=== PATIENT | male | born 1985 | race Caucasian/White ===

== ENCOUNTER 2017-04-03 09:09 | Emergency (ER) | payer SELFPAY ==
[2017-04-03] MEDS ORDERED: Amoxicillin/Potassium Clav 875 MG TAB ONE (09:34)
[2017-04-03] MEDS ORDERED: Pseudoephedrine HCl 30 MG TAB ONE (09:34)
== END 2017-04-03 09:35 | disposition home or self-care (01) ==
LOC: MADERS 09:09
DX: J01.90 Acute sinusitis, unspecified (principal)
CPT/HCPCS: 99282

== ENCOUNTER 2018-01-08 07:34 | Emergency (ER) | payer OTHER, SELFPAY ==
[2018-01-08] MEDS ORDERED: Lidocaine 1% 20 ML MDV ONE (08:17)
[2018-01-08] MEDS ORDERED: Azithromycin 250 MG TAB ONE (08:17)
[2018-01-08] MEDS ORDERED: cefTRIAXone\\ROCEPHIN 250 MG VIAL ONE (08:17)
== END 2018-01-08 08:40 | disposition home or self-care (01) ==
LOC: MADERS 07:34
DX: Z20.2 Contact with and (suspected) exposure to infections with a predominantly sexual mode of transmission (principal)
CPT/HCPCS: 87491; 87591; 96372; J0696; J2001

== ENCOUNTER 2019-05-23 21:51 | Emergency (ER) | payer OTHER, SELFPAY | END 2019-05-23 22:10 | disposition home or self-care (01) | LOC: MADERS 21:51 | DX: K02.9 Dental caries, unspecified (principal) | CPT/HCPCS: 99406 ==

== ENCOUNTER 2019-07-04 12:55 | Emergency (ER) | payer OTHER | END 2019-07-04 13:26 | disposition home or self-care (01) | LOC: MADERS 12:55 | DX: R11.2 Nausea with vomiting, unspecified (principal); F17.210 Nicotine dependence, cigarettes, uncomplicated | CPT/HCPCS: 99281 ==

== ENCOUNTER 2019-08-03 10:31 | Emergency (ER) | payer SELFPAY | END 2019-08-03 12:00 | disposition left against medical advice (07) | LOC: MADERS 10:31 | DX: Z53.21 Procedure and treatment not carried out due to patient leaving prior to being seen by health care provider (principal) ==

== ENCOUNTER 2019-08-03 12:20 | Emergency (ER) | payer SELFPAY | END 2019-08-03 12:35 | disposition home or self-care (01) | LOC: MADERS 12:20 | DX: R11.2 Nausea with vomiting, unspecified (principal); R19.7 Diarrhea, unspecified; F17.210 Nicotine dependence, cigarettes, uncomplicated | CPT/HCPCS: 99283 ==

== ENCOUNTER 2019-12-08 20:53 | Emergency (ER) | payer SELFPAY ==
[2019-12-08] MEDS ORDERED: Ketorolac Tromethamine 30 MG/ML VIAL ONE (21:14)
--- NOTE | 2019-12-08 21:30 | RAD ---
Exam:Left forearm 2 views HISTORY: Pain. Injury. Fall. COMPARISON: None FINDINGS: No fracture, cortical irregularity or periosteal reaction IMPRESSION: No fracture.
== END 2019-12-08 21:35 | disposition home or self-care (01) ==
LOC: MADERS 20:53
DX: S50.12XA Contusion of left forearm, initial encounter (principal); F17.210 Nicotine dependence, cigarettes, uncomplicated; W01.0XXA Fall on same level from slipping, tripping and stumbling without subsequent striking against object, initial encounter
CPT/HCPCS: 96372; J1885

== ENCOUNTER 2021-08-10 09:13 | Emergency (ER) | payer SELFPAY ==
[2021-08-10] MEDS ORDERED: Lidocaine 1% 20 ML MDV ONE (09:29)
[2021-08-10] MEDS ORDERED: Bacitracin 1 PK ONE (10:31)
== END 2021-08-10 10:42 | disposition home or self-care (01) ==
LOC: MADERS 09:13
DX: S61.213A Laceration without foreign body of left middle finger without damage to nail, initial encounter (principal); F17.210 Nicotine dependence, cigarettes, uncomplicated; W23.0XXA Caught, crushed, jammed, or pinched between moving objects, initial encounter
CPT/HCPCS: 12001

== ENCOUNTER 2021-08-19 16:42 | Emergency (ER) | payer SELFPAY | END 2021-08-19 19:08 | disposition home or self-care (01) | LOC: MADERS 16:42 | DX: L05.91 Pilonidal cyst without abscess (principal); S61.213D Laceration without foreign body of left middle finger without damage to nail, subsequent encounter; F17.210 Nicotine dependence, cigarettes, uncomplicated; X58.XXXD Exposure to other specified factors, subsequent encounter | CPT/HCPCS: 99282 ==

== ENCOUNTER 2021-09-12 08:17 | Emergency (ER) | payer SELFPAY ==
[2021-09-12] MEDS ORDERED: Ibuprofen 800 MG TAB ONE (08:37)
== END 2021-09-12 09:40 | disposition home or self-care (01) ==
LOC: MADERS 08:17
DX: J06.9 Acute upper respiratory infection, unspecified (principal); F17.210 Nicotine dependence, cigarettes, uncomplicated
CPT/HCPCS: 71046

== ENCOUNTER 2021-10-02 06:38 | Emergency (ER) | payer OTHER, BC ==
[2021-10-02] MEDS ORDERED: Boostrix 0.5 ML (Tdap) VIAL ONE (07:15)
[2021-10-02] MEDS ORDERED: Lidocaine 1% (PF) 30 ML VIAL ONE (07:15)
[2021-10-02] MEDS ORDERED: Bacitracin 1 PK ONE (07:15)
== END 2021-10-02 08:10 | disposition home or self-care (01) ==
LOC: MADERS 06:38
DX: S81.811A Laceration without foreign body, right lower leg, initial encounter (principal); F17.210 Nicotine dependence, cigarettes, uncomplicated; W26.8XXA Contact with other sharp object(s), not elsewhere classified, initial encounter
CPT/HCPCS: 12004; 90471; 90715; J2001

== ENCOUNTER 2021-10-16 16:02 | Emergency (ER) | payer OTHER, BC ==
[2021-10-16] MEDS ORDERED: Mupirocin 2% Ointment 22 GM Tube ONE (16:47)
== END 2021-10-16 16:57 | disposition home or self-care (01) ==
LOC: MADERS 16:02
DX: S81.811D Laceration without foreign body, right lower leg, subsequent encounter (principal); F17.210 Nicotine dependence, cigarettes, uncomplicated
CPT/HCPCS: 12001

== ENCOUNTER 2021-10-30 16:03 | Emergency (ER) | payer OTHER, BC ==
[2021-10-30] MEDS ORDERED: Bacitracin 1 PK ONE (17:12)
[2021-10-30] MEDS ORDERED: Cephalexin 500 MG CAP ONE (17:13)
== END 2021-10-30 17:31 | disposition home or self-care (01) ==
LOC: MADERS 16:03
DX: L03.115 Cellulitis of right lower limb (principal); S81.811D Laceration without foreign body, right lower leg, subsequent encounter; F17.210 Nicotine dependence, cigarettes, uncomplicated
CPT/HCPCS: 99283

== ENCOUNTER 2022-02-01 08:33 | Emergency (ER) | payer BC, OTHER | END 2022-02-01 08:57 | disposition home or self-care (01) | LOC: MADERS 08:33 → EEVIPCON 08:33 → MADERS 08:57 | DX: J06.9 Acute upper respiratory infection, unspecified (principal); F17.210 Nicotine dependence, cigarettes, uncomplicated | CPT/HCPCS: 99283 ==

== ENCOUNTER 2024-05-06 06:58 | Emergency (ER) | payer SELFPAY | END 2024-05-06 07:48 | disposition home or self-care (01) | LOC: MADERS 06:58 | DX: B35.6 Tinea cruris (principal); F17.200 Nicotine dependence, unspecified, uncomplicated | CPT/HCPCS: 99282 ==